=== PATIENT | female | born 1990 | race Caucasian/White ===

== ENCOUNTER 2018-08-18 21:01 | Emergency (ER) | payer SELFPAY ==
[~2018-08-18] VITALS: Ht 175.3 cm; Wt 72.7 kg
[2018-08-18 21:06] VITALS: BP 129/89
[2018-08-18] MEDS ORDERED: ESCI20TA PO (21:10)
[2018-08-18] MEDS ORDERED: BUPR-93 PO (21:10)
== END 2018-08-18 22:31 | disposition home or self-care (01) ==
LOC: EMS 21:03
DX: F10.20 Alcohol dependence, uncomplicated (principal); F32.9 Major depressive disorder, single episode, unspecified; Y90.9 Presence of alcohol in blood, level not specified